=== PATIENT | male | born 1965 | race Caucasian/White ===

== ENCOUNTER 2019-11-08 11:07 | Outpatient (CLI) | payer OTHER, SELFPAY ==
[2019-11-08 12:58] LABS: Alanine Aminotransferase 70 U/L (16-63); Albumin Level 4.2 g/dL (3.4-5.0); Alkaline Phosphatase 87 U/L (46-116); Anion Gap 13.1 mmol/L (7-16); Aspartate Amino Transferase 37 U/L (15-37); Bilirubin,Total 0.5 mg/dL (0.00-1.00); Blood Urea Nitrogen 15 mg/dL (7-18); Calcium 9.2 mg/dL (8.5-10.1); Carbon Dioxide 28 mmol/L (21-32); Chloride 105 mmol/L (98-108); Estimated Glomerular Filt Rate > 60; Glucose 112 mg/dL (70-99); Osmolality Calculated 295 mOsm/kg (285-295); Potassium 4.1 mmol/L (3.5-5.1); Sodium 142 mmol/L (136-145); Total Protein 6.9 g/dL (6.4-8.2)
== END 2019-11-08 11:08 | disposition home or self-care (01) ==
LOC: CHSLAB 11:09
PROVIDERS: PCP Internal Medicine; Visit Provider Internal Medicine
DX: E78.2 Mixed hyperlipidemia (principal); R79.89 Other specified abnormal findings of blood chemistry
CPT/HCPCS: 36415; 80053

== ENCOUNTER 2019-12-09 10:03 | Outpatient (CLI) | payer OTHER, SELFPAY ==
[2019-12-09 10:55] LABS: Alanine Aminotransferase 63 U/L (16-63); Alkaline Phosphatase 78 U/L (46-116); Anion Gap 13.2 mmol/L (7-16); Aspartate Amino Transferase 31 U/L (15-37); Bilirubin,Total 0.5 mg/dL (0.00-1.00); Blood Urea Nitrogen 15 mg/dL (7-18); Calcium 9.1 mg/dL (8.5-10.1); Carbon Dioxide 28 mmol/L (21-32); Chloride 107 mmol/L (98-108); Estimated Glomerular Filt Rate > 60; Glucose 163 mg/dL (70-99); Osmolality Calculated 302 mOsm/kg (285-295); Potassium 4.2 mmol/L (3.5-5.1); Sodium 144 mmol/L (136-145); Total Protein 6.6 g/dL (6.4-8.2)
== END 2019-12-09 10:04 | disposition home or self-care (01) ==
PROVIDERS: PCP Internal Medicine; Visit Provider Internal Medicine
DX: R94.5 Abnormal results of liver function studies (principal)
CPT/HCPCS: 36415; 80053

== ENCOUNTER 2020-04-24 08:20 | Outpatient (CLI) | payer OTHER, SELFPAY ==
[2020-04-25 14:25] LABS: SARS-CoV-2 RNA PCR Negative
== END 2020-04-24 08:21 | disposition home or self-care (01) ==
LOC: CHSLAB 08:21
PROVIDERS: PCP Internal Medicine; Visit Provider Internal Medicine
DX: Z20.828 Contact with and (suspected) exposure to other viral communicable diseases (principal)
CPT/HCPCS: 87635; C9803; U0003

== ENCOUNTER 2020-06-04 07:38 | Outpatient (CLI) | payer OTHER, SELFPAY ==
--- NOTE | 2020-07-05 01:21 | WPDHOMESLEEP ---
Sleep Study - Home Unattended Date of Study: 06/04/20 Ordering Provider: Carolyn Briggs MD Interpreting Physician: Sapphire Light MD Home Sleep Study Type: Apnea Link Air Height: 1.83 m Weight: 115.666 kg Body Mass Index: 34.5 [place]: 13 Reason for Sleep Study EDY; loud snoring and nonrefreshing sleep Sleep History Bernardo Ca is a 55 year old male with hypertension, hyperlipidemia, low back pain, fatigue, and impaired fasting glucose. He has a history of loud snoring and he stops breathing at night. This has been going on several years. 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 His snoring is constantly loud enough that others complain about it. He constantly awakens at night with heartburn, belching and coughing. He constantly waking from sleep feeling short of breath. He rarely has trouble sleeping with a cold. He frequently wakes up gasping for breath at night. He frequently has breathing problems at night observed by others. He rarely sweats excessively at night. He occasionally notices his heart pounding or beating irregularly at night. He frequently falls asleep during the day, frequently involuntarily, rarely while driving. He does not fall asleep during physical effort. He does not have loss of muscle tone was strong emotion. He does not have daytime difficulties due to excessive sleepiness. He does not feel paralyzed on waking or falling asleep and does not have vivid dreamlike scenes upon awakening or falling asleep. He does not feel afraid to go to sleep. he does not have nightmares. He rarely remembers his dreams. Does not have racing thoughts. He does not have feelings of sadness, depression or anxiety. He does not have muscular tension. He does not notice parts of his body jerking. He rarely kicks at night. He does not have crawling and aching feelings in his legs at night. Rarely he has leg pain at night. He does not have morning jaw pain and he does not grind his teeth during sleep. He is not bothered by pain during the day and is not awakened by pain during the night. He occasionally wakes up feeling stiff in the morning with sore or achy muscles. He does not have spine pain in the morning. Normal bedtime is 9:00 p.m., falling asleep within 15 minutes, waking twice at night for a few minutes. When he awakens during the night he turns from side to side. He wakes at 4:45 a.m.. On the weekends he goes to bed at 9:00 p.m. but sleeps later, wakes up between 7 and 8:00 a.m.. He estimates between 7 and 9 hours of sleep at night. He does not take naps. A short nap is not refreshing. He feels better in the evening compared other times of day. Habits: He never smoked; drinks hot tea 2 servings per day, he drinks alcohol in social settings. [facility] Past Medical History Medical History (Updated 07/05/20 @ 01:39 by Sapphire Light MD) Gastroesophageal reflux disease History of perforation of tympanic membrane repaired surgically Hyperlipidemia Hypertension Impaired fasting glucose Surgical History Surgical History (Updated 07/05/20 @ 01:28 by Sapphire Light MD) History of discectomy 2019 History of spinal fusion 2018 Social History Social History (Updated 07/05/20 @ 01:31 by Sapphire Light MD) Smoking status: Never smoker Alcohol intake: current Alcohol use details: social alcohol use Living arrangements: with family Additional living arrangements comments: 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 This study was scored using [facility] guidelines. Sleep Architecture Not applicable for home sleep test.
[2020-07-05 01:42] VITALS: BMI 34.5
== END 2020-06-04 07:39 | disposition home or self-care (01) ==
PROVIDERS: PCP Internal Medicine; Visit Provider Internal Medicine
DX: G47.33 Obstructive sleep apnea (adult) (pediatric) (principal)
CPT/HCPCS: 95806

== ENCOUNTER 2020-08-14 00:57 | Outpatient (CLI) | payer OTHER, SELFPAY ==
[2020-08-14 19:42] LABS: SARS-CoV-2 RNA PCR Negative
== END 2020-08-14 00:58 | disposition home or self-care (01) ==
LOC: ANHCOVIDDT 00:57
PROVIDERS: PCP Internal Medicine; Visit Provider Internal Medicine Critical Care Medicine
DX: R68.89 Other general symptoms and signs (principal); Z20.822 Contact with and (suspected) exposure to COVID-19
CPT/HCPCS: C9803; U0003

== ENCOUNTER 2020-08-16 09:08 | Outpatient (CLI) | payer OTHER, SELFPAY ==
--- NOTE | 2020-09-23 17:36 | WPDSLEEPSTUD ---
Sleep Study Date of Study: 08/16/20 Ordering Provider: Dr.Rajnish Marcos Interpreting Physician: Sleep Study Type: CPAP Titration Height: 1.83 m Weight: 113.398 kg Body Mass Index: 33.9 Neck Circumference: 6.71 m [place]: 13 Reason for Sleep Study Prior home sltudy showed presence of severe obstructive sleep apnea along with severe desaturation. Sleep History Loud disruptive snoring, poor quality of sleep, witnessed apneas, and daytime sleepiness. [facility] Past Medical History Medical History (Updated 07/05/20 @ 01:39 by Sapphire Light MD) Gastroesophageal reflux disease History of perforation of tympanic membrane repaired surgically Hyperlipidemia Hypertension Impaired fasting glucose Surgical History Surgical History (Updated 07/05/20 @ 01:28 by Sapphire Light MD) History of discectomy 2019 History of spinal fusion 2018 Social History Social History (Updated 07/05/20 @ 01:31 by Sapphire Light MD) Smoking status: Never smoker Alcohol intake: current Additional living arrangements comments: with 3 children, works at a [employer] job Sleep Procedure The entire study was devoted to positive airway pressure titration. Patient used ResMed med F 20 full face mask of large size. Sleep Architecture Total recording time 467 minutes, total sleep time 375 minutes, sleep efficiency 80.3%. Sleep latency 25 minutes, REM latency 70 minutes. Awake after sleep onset 67 minutes, stage N1 8%, N2 62.5%, N3 4.8%, REM sleep 24.8%. Supine sleep 55%, supine REM sleep 12.3%. Respiratory Analysis AASM Criteria used. Patient had 21 apneas, obstructive apneas 10, central apneas 10, mixed apnea 1. Apnea index 3.4. Patient had 72 hypopneas with index 11.5. AHI 14.9. Supine index 18, nonsupine index 11. non-REM index 19.1, REM index 1.9. Arousals Total arousals 93 with index 11.9. Spontaneous arousals 61, hypopnea arousals 22, apnea arousals 5, snores arousal 0.3. Periodic Limb Movements Thirty-seven isolated leg movements with index 5.9. Three leg movements associated with arousal with arousal index 0.4 which is not significant. No PLM. Oximetry Data Average oxygen saturation during titration 95%, minimum oxygen saturation 83%. SaO2<90%-18Min,SaO2<88%-8Min. Snoring Profile Snoring was reported as moderate. Cardiac Profile Normal sinus rhythm, average heart rate 66 beats per minute, range 37-143 beats per minute. Few PVCs were noted. EEG Profile Unremarkable EEG. Assessment and Plan Additional Plan Diagnosis #1-EDY G47.33 Positive airway pressure titration study - patient was started on a CPAP of 5 cm. However within a short period of time, patient became very uncomfortable unable to exhale. At that time patient was switched to BiPAP mode which seemed to work well. The BiPAP therapy was begun at 8/4 cm and was gradually titrated to a maximum level of 28/24 cm. Patient continued to show presence of desaturation even at pressures of 22/18 cm. At BiPAP 28/24 cm patient had 1 hour and 22 minutes of trial with 97% sleep efficiency. Patient was supine. 33 minutes of REM sleep and 47 minutes of non-REM sleep occurred. Obstructive apneas and hypopneas were eliminated. Two central apneas were noted, 1 of them occurred after a spontaneous arousal. There air central apneas should not be of clinical concern. Oxygen saturation averaged at 96% and lowest saturation recorded was 91% at this pressure. In terms of management, consider use of BiPAP at 28/24 cm. The patient appeared to tolerate such high pressure reasonably well.If tolerance becomes an issue,lower pressure of 24/20cm.could be acceptable.Once patient gets accustomed to BiPAP, the pressure could be raised to ideal level.Other measures such as weight reduction,correction of upper airway obstruction if present and proper sleep hygiene will help in management of his sleep disorder.
[2020-09-23 18:04] VITALS: BMI 33.9
== END 2020-08-16 09:09 | disposition home or self-care (01) ==
LOC: ANHCSM 09:11
PROVIDERS: PCP Internal Medicine; Visit Provider Internal Medicine
DX: G47.33 Obstructive sleep apnea (adult) (pediatric) (principal)
CPT/HCPCS: 95811

== ENCOUNTER 2020-09-19 07:09 | Outpatient (CLI) | payer OTHER, SELFPAY ==
[2020-09-19 07:30] LABS: Add Urine Microscopic? NO; Appearance Urine Clear (Clear); Bilirubin Urine Negative (Negative); Blood Urine Negative (Negative); Color Urine Yellow (Yellow); Glucose Urine UA Negative (Negative); Ketones Urine Negative (Negative); Leukocyte Esterase Ur Negative (Negative); Nitrate Urine Negative (Negative); Protein Urine Negative (Negative); Urobilinogen Urine 0.2 mg/dL (0.2-1.0); pH Urine 6.5 (5.0-8.0)
[2020-09-19 07:47] LABS: Hemoglobin A1C 6.3 % (<5.7)
[2020-09-19 08:22] LABS: Alanine Aminotransferase 70 U/L (16-63); Albumin Level 4.3 g/dL (3.4-5.0); Alkaline Phosphatase 85 U/L (46-116); Anion Gap 9 mmol/L (8-16); Aspartate Amino Transferase 37 U/L (15-37); Bilirubin,Total 0.5 mg/dL (0.00-1.00); Blood Urea Nitrogen 13 mg/dL (7-18); Calcium 9.1 mg/dL (8.5-10.1); Carbon Dioxide 29 mmol/L (21-32); Chloride 103 mmol/L (98-108); Cholesterol 162 mg/dL (0-200); Creatine Kinase 152 U/L (39-308); Estimated Glomerular Filt Rate > 60; Glucose 122 mg/dL (70-99); HDL Direct 34 mg/dL (40-60); LDL Cholesterol Calculated 84 mg/dL (<130); Osmolality Calculated 293 mOsm/kg (285-295); Potassium 4.4 mmol/L (3.5-5.1); Sodium 141 mmol/L (136-145); Triglycerides 221 mg/dL (0-150)
== END 2020-09-19 07:10 | disposition home or self-care (01) ==
LOC: CHSLAB 07:11
PROVIDERS: PCP Internal Medicine; Visit Provider Internal Medicine
DX: R73.01 Impaired fasting glucose (principal); I10 Essential (primary) hypertension; E78.2 Mixed hyperlipidemia
CPT/HCPCS: 36415; 80053; 80061; 81003; 82550; 83036

== ENCOUNTER 2021-03-15 07:03 | Outpatient (CLI) | payer OTHER, SELFPAY ==
[2021-03-15 07:18] LABS: Add Urine Microscopic? NO; Appearance Urine Clear (Clear); Bilirubin Urine Negative (Negative); Blood Urine Negative (Negative); Color Urine Light Yellow (Yellow); Glucose Urine UA Negative (Negative); Ketones Urine Negative (Negative); Leukocyte Esterase Ur Negative (Negative); Nitrate Urine Negative (Negative); Protein Urine Negative (Negative); Specific Grav Ur >= 1.030 (1.010-1.020); Urobilinogen Urine 0.2 mg/dL (0.2-1.0); pH Urine 5.5 (5.0-8.0)
[2021-03-15 07:35] LABS: Hemoglobin A1C 6.2 % (<5.7)
[2021-03-15 07:36] LABS: Creatinine Urine 202.33 mg/dL (40-278); MALB Creatinine Ratio 6.4 mg/g (0-30); Microalbumin Urine Random < 13.0 mg/L
[2021-03-15 08:20] LABS: Alanine Aminotransferase 100 U/L (16-63); Albumin Level 4.1 g/dL (3.4-5.0); Alkaline Phosphatase 81 U/L (46-116); Anion Gap 12 mmol/L (8-16); Aspartate Amino Transferase 54 U/L (15-37); Bilirubin,Total 0.5 mg/dL (0.00-1.00); Blood Urea Nitrogen 12 mg/dL (7-18); Calcium 9.1 mg/dL (8.5-10.1); Carbon Dioxide 27 mmol/L (21-32); Chloride 106 mmol/L (98-108); Cholesterol 144 mg/dL (0-200); Creatine Kinase 202 U/L (39-308); Estimated Glomerular Filt Rate > 60; Glucose 119 mg/dL (70-99); HDL Direct 37 mg/dL (40-60); LDL Cholesterol Calculated 79 mg/dL (<130); Osmolality Calculated 300 mOsm/kg (285-295); Potassium 4.5 mmol/L (3.5-5.1); Prostate Specific Antigen 0.7 ng/mL (< OR = 4.0); Sodium 145 mmol/L (136-145); Triglycerides 142 mg/dL (0-150)
== END 2021-03-15 07:04 | disposition home or self-care (01) ==
LOC: CHSLAB 07:05
PROVIDERS: PCP Internal Medicine; Visit Provider Internal Medicine
DX: R73.01 Impaired fasting glucose (principal); E78.2 Mixed hyperlipidemia; I10 Essential (primary) hypertension; Z12.5 Encounter for screening for malignant neoplasm of prostate
CPT/HCPCS: 36415; 80053; 80061; 81003; 82043; 82550; 83036; 84153; G0103

== ENCOUNTER 2021-07-16 09:47 | Outpatient (CLI) | payer OTHER, SELFPAY ==
[2021-07-16 10:09] LABS: Hemoglobin A1C 6.1 % (<5.7)
[2021-07-16 10:49] LABS: Alanine Aminotransferase 79 U/L (16-63); Albumin Level 4.1 g/dL (3.4-5.0); Alkaline Phosphatase 95 U/L (46-116); Anion Gap 11 mmol/L (8-16); Aspartate Amino Transferase 43 U/L (15-37); Bilirubin,Total 0.5 mg/dL (0.00-1.00); Blood Urea Nitrogen 17 mg/dL (7-18); Calcium 9.4 mg/dL (8.5-10.1); Carbon Dioxide 27 mmol/L (21-32); Chloride 105 mmol/L (98-108); Estimated Glomerular Filt Rate > 60; Glucose 104 mg/dL (70-99); Osmolality Calculated 297 mOsm/kg (285-295); Potassium 4.4 mmol/L (3.5-5.1); Sodium 143 mmol/L (136-145); Total Protein 7.3 g/dL (6.4-8.2)
== END 2021-07-16 09:48 | disposition home or self-care (01) ==
LOC: CHSLAB 09:48
PROVIDERS: PCP Internal Medicine; Visit Provider Internal Medicine
DX: R73.01 Impaired fasting glucose (principal)
CPT/HCPCS: 36415; 80053; 83036

== ENCOUNTER 2021-07-29 07:36 | Outpatient (CLI) | payer OTHER, SELFPAY ==
--- NOTE | ~2021-07-29 | US_ITS ---
US right upper quadrant DATE: 07/29/2021 08:41 INDICATION: Right upper quadrant abdominal pain, elevated liver enzymes TECHNIQUE: Real-time imaging of liver, pancreas, gallbladder areas COMPARISON: 06/09/2013 radionuclide hepatobiliary scan 09/26/2011 gallbladder ultrasound FINDINGS: There is hepatic steatosis. Normal hepatopedal portal venous flow direction. No hepatic spa ce-occupying mass lesion is detected. No pancreatic mass lesion is detected. No bile duct or pancreatic duct dilatation. IMPRESSION: No significant abnormality Reviewed, dictated and finalized at Location [facility]. Reviewed, dictated and finalized at location B. [employer] IMPRESSION: No significant abnormality
== END 2021-07-29 07:37 | disposition home or self-care (01) ==
LOC: CHSIMG 07:37
PROVIDERS: PCP Internal Medicine; Visit Provider Internal Medicine
DX: R94.5 Abnormal results of liver function studies (principal); R10.11 Right upper quadrant pain
CPT/HCPCS: 76705

== ENCOUNTER 2022-11-04 15:25 | Outpatient (CLI) | payer OTHER, SELFPAY ==
--- NOTE | ~2022-11-04 | XR_ITS ---
XR hip RT min 2V 11/04/2022 15:43 Indication: Right hip pain Procedure: 2 views right hip Comparison: 10/07/2017 Findings: There is severe osteoarthritis of the right hip. No fracture or dislocation. No soft tissue abnormality. No foreign bodies. There are surgical changes consistent with fusion at L5-S1. Impression: 1: Severe osteoarthritis of the right hip. Reviewed, dictated and finalized at location A. Impression: 1: Severe osteoarthritis of the right hip.
== END 2022-11-04 15:26 | disposition home or self-care (01) ==
LOC: CHSIMG 15:27
PROVIDERS: PCP Internal Medicine; Visit Provider Internal Medicine
DX: M25.551 Pain in right hip (principal); M16.11 Unilateral primary osteoarthritis, right hip
CPT/HCPCS: 73502

== ENCOUNTER 2022-11-13 09:07 | Outpatient (CLI) | payer OTHER, SELFPAY ==
--- NOTE | ~2022-11-13 | MR_ITS ---
EXAMINATION: MR hip RT wo con DATE: 11/13/2022 10:29 INDICATION: Chronic right hip pain. TECHNIQUE: Magnetic resonance imaging (MRI) of the right hip was performed without intravenous contra st. COMPARISON: Right hip radiographs 11/04/2022 FINDINGS: Bones/cartilage: There are changes of anterior and posterior fusion procedures at L5-S1. There is a right supra-acetab ular insufficiency fracture without displacement. There is severe right hip osteoarthritis including full-thickness cartilage loss superiorly with acetabular subchondral cysts and joint osteophytes. The re is mild left hip osteoarthritis. Labrum: There is maceration of the right acetabular labrum. Fluid: There is a right hip joint effusion. Soft tissues: The gluteus minimus and gluteus medius tendons are normal. The hamstring origins are normal. The ilio psoas tendons are normal. The prostate is mildly enlarged. IMPRESSION: 1. Insufficiency fracture of right supra-acetabular ilium. 2. Severe right hip osteoarthritis and mild left hip osteoarthritis. 3. Right hip joint effusion. Reviewed, dictated and finalized at location A.
== END 2022-11-13 09:08 | disposition home or self-care (01) ==
LOC: CHSIMG 09:08
PROVIDERS: PCP Internal Medicine; Visit Provider Internal Medicine
DX: M25.551 Pain in right hip (principal); M84.459A Pathological fracture, hip, unspecified, initial encounter for fracture; M16.0 Bilateral primary osteoarthritis of hip; M25.451 Effusion, right hip
CPT/HCPCS: 73721

== ENCOUNTER 2024-04-18 07:10 | Outpatient (CLI) | payer OTHER, SELFPAY ==
--- NOTE | ~2024-04-18 | US_ITS ---
Limited Abdominal Sonogram: Real-time sonographic imaging of the right upper quadrant was performed. Clinical History: Right upper quadrant pain Findings: The liver appears echogenic, with no evidence of mass lesion or bile duct dilatation. Main portal vein demonstrates normal direction of flow. The gallbladder is well distended, and appears no rmal with no evidence of gallstone or wall thickening. The common bile duct measures 2 mm. The visua lized pancreas, aorta, and IVC are unremarkable. Impression: Diffuse fatty infiltration of the liver. Reviewed, dictated and finalized at location M. Impression: Diffuse fatty infiltration of the liver.
== END 2024-04-18 07:11 | disposition home or self-care (01) ==
LOC: CHSIMG 07:12
PROVIDERS: PCP Internal Medicine; Visit Provider Internal Medicine
DX: R10.11 Right upper quadrant pain (principal); K76.0 Fatty (change of) liver, not elsewhere classified
CPT/HCPCS: 76705

== ENCOUNTER 2024-05-02 10:04 | Outpatient (CLI) | payer OTHER, SELFPAY ==
--- NOTE | ~2024-05-02 | NM_ITS ---
EXAMINATION: NM hepatobiliary w pharm DATE: 05/02/2024 13:11 INDICATION: Right upper quadrant abdominal pain. COMPARISON: Ultrasound 04/18/2024 TECHNIQUE: 6.3 mCi Tc-99m mebrofenin (Choletec) was administered intravenously. Scintigraphic images of the abdomen were obtained for one hour. Then, 2.3 mcg sincalide (Kinevac) IV was administered, an d imaging was continued for 30 minutes. FINDINGS: There is normal clearance of radiotracer from the blood pool. There is homogeneous tracer u ptake by the liver. Activity progresses to the bowel and gallbladder. Gallbladder ejection fraction (GBEF) was 71%. Note that most patients with gallbladder dysfunction have GBEF < 35%, which overlaps with the broad normal range of 10-90%. IMPRESSION: 1. Normal hepatobiliary scintigraphy. Reviewed, dictated and finalized at location A.
== END 2024-05-02 10:05 | disposition home or self-care (01) ==
LOC: CHSIMG 10:05
PROVIDERS: PCP Internal Medicine; Visit Provider Internal Medicine
DX: R10.11 Right upper quadrant pain (principal)
CPT/HCPCS: 78227; A9537; J2805

== ENCOUNTER 2024-06-09 01:42 | Day surgery (SDC) | payer OTHER, SELFPAY ==
[2024-05-27 14:34] VITALS: BMI 34.0
[2024-06-09 12:03] VITALS: BP 145/78; PULSE 56; RESP 18; O2SAT 97
[2024-06-09] MEDS: LACTATED RINGERS 1,000 ML 150 ML IV CONT (12:27)
[2024-06-09 12:28] LABS: Glucose Point of Care 95 mg/dl (65-105)
--- NOTE | 2024-06-09 12:39 | P.PNAN_ITS ---
Anes - Initial Pre Proc Eval Procedure: Operation Date: 06/09/24 13:00 Proposed Procedures p Esophagogastroduodenoscopy&Screen Colon - Onur Campbell MD Date/Time: 06/09/24 12:39 Surgeon: Onur Campbell MD Pre Op Diagnosis: rt upper quad pain, screening colonoscopy Patient Data Age: 59 Gender: M Height: 1.83 m Weight: 116.2 kg Last Vital Signs Pulse 56 L 06/09/24 12:03 Resp 18 06/09/24 12:03 BP 145/78 H 06/09/24 12:03 Pulse Ox 97 06/09/24 12:03 O2 Del Method Room Air 06/09/24 12:03 Allergies Allergy/AdvReac Type Severity Reaction Status Date / Time No Known Allergies Allergy Unknown Verified 06/09/24 12:02 Home Medications Medication Instructions Recorded Confirmed Type aspirin 81 mg tablet 81 mg PO DAILY 05/27/24 06/09/24 History glimepiride 2 mg tablet 2 mg PO QAM 05/27/24 06/09/24 History glimepiride 4 mg tablet 6 mg PO HS 05/27/24 06/09/24 History losartan 100 1 tablet PO DAILY 05/27/24 06/09/24 History mg-hydrochlorothiazide 12.5 mg tablet metoprolol succinate 50 mg 50 mg PO DAILY 05/27/24 06/09/24 History tablet,extended release 24 hr simvastatin 40 mg tablet 1 mg PO DAILY 05/27/24 06/09/24 History Laboratory Tests 06/09/24 12:23 POC Capillary Glucose 95 mg/dl (65-105) Patient hx anesthesia problems: none Family hx anesthesia problems: none Results Review: All pre-operative results and documents have been reviewed as part of the pre- operative evaluation. [facility] Past Medical History Medical History (Updated 06/09/24 @ 12:39 by Robb Jaimes CRNA) Gastroesophageal reflux disease History of perforation of tympanic membrane repaired surgically Hyperlipidemia Hypertension Impaired fasting glucose Obstructive sleep apnea (~05/2020) Surgical History Surgical History History of discectomy 2019 History of spinal fusion 2017 Social History Social History Smoking status: Never smoker Alcohol intake: current Drinks per week: 2 Alcohol use details: 2 beers a week Substance use type: does not use Living arrangements: with family Additional living arrangements comments: with Spiritual care concerns: No Anes - Eval Final PreProcedure Day of Procedure 06/09/24 12:39 Patient weight: obese Heart: regular rate and rhythm Lungs: clear to auscultation Airway: Mallampati scale class III Neurological: alert and oriented Last oral intake: >/= 8 hours ASA classification: III Emergent: no Anesthetic plan: proceed Anesthesia type and monitoring: general GIVS Results Review: All pre-operative results and documents have been reviewed as part of the pre- operative evaluation. Informed Consent: The patient's anesthetic plan and its attendant risks and benefits were discussed with the patient/family/POA. Questions were solicited and answers provided to the satisfaction of the patient/family/POA.
--- NOTE | 2024-06-09 12:46 | PM.HPGS ---
History of Present Illness History of Present Illness Consent: Risks, benefits, and alternatives have been discussed and questions answered. Patient agrees to proceed with procedure. Chief complaint: rt upper quad pain, screening colonoscopy Narrative: Bernardo Ca is a 59 year old male with intermittent pain in ruq. Last colonoscopy 10 years ago Review of Systems Review of Systems: All systems reviewed & are unremarkable except as noted in HPI and below PMFSH Past Medical History Medical History (Updated 06/09/24 @ 12:47 by Onur Campbell MD) Colon cancer screening Gastroesophageal reflux disease History of perforation of tympanic membrane repaired surgically Hyperlipidemia Hypertension Impaired fasting glucose Obstructive sleep apnea (~05/2020) RUQ pain Surgical History Surgical History History of discectomy 2019 History of spinal fusion 2018 Social History Social History Smoking status: Never smoker Alcohol intake: current Drinks per week: 2 Alcohol use details: 2 beers a week Substance use type: does not use Living arrangements: with family Additional living arrangements comments: with Spiritual care concerns: No Meds Home Medications and Allergies Home Medications Medication Instructions Recorded Confirmed Type aspirin 81 mg tablet 81 mg PO DAILY 05/27/24 06/09/24 History glimepiride 2 mg tablet 2 mg PO QAM 05/27/24 06/09/24 History glimepiride 4 mg tablet 6 mg PO HS 05/27/24 06/09/24 History losartan 100 1 tablet PO DAILY 05/27/24 06/09/24 History mg-hydrochlorothiazide 12.5 mg tablet metoprolol succinate 50 mg 50 mg PO DAILY 05/27/24 06/09/24 History tablet,extended release 24 hr simvastatin 40 mg tablet 1 mg PO DAILY 05/27/24 06/09/24 History Allergies Allergy/AdvReac Type Severity Reaction Status Date / Time No Known Allergies Allergy Unknown Verified 06/09/24 12:02 Vital Signs Vital Signs - 24 hr 06/09/24 12:03 Pulse Rate 56 L Respiratory Rate 18 Blood Pressure 145/78 H Pulse Oximetry 97 Oxygen Delivery Room Air Exam Const: General: comfortable and no acute distress HENMT: Face/Nose/Sinus: Normal nares present Eyes: General: appearance normal, both eyes and all related structures Neck: Neck: no JVD Resp: Auscultation: clear to auscultation bilaterally Cardio: Rate: regular rate Rhythm: regular rhythm GI: Inspection: non-distended GI Palp: Yes Soft to palpation Skin: General skin exam: normal color Neuro: General: gait normal Speech: normal speech Extrem: General: normal to inspection Psych: Mental Status: mental status grossly normal Assessment and Plan Assessment and plan (1) RUQ pain: Code(s): R10.11 - Right upper quadrant pain Status: Acute Assessment and Plan: egd (2) Colon cancer screening: Code(s): Z12.11 - Encounter for screening for malignant neoplasm of colon Status: Acute Assessment and Plan: colonoscopy
[2024-06-09 13:07] VITALS: BP 109/53; PULSE 60; RESP 19; O2SAT 97
[2024-06-09 13:17] VITALS: BP 119/67; PULSE 56; RESP 19; O2SAT 96
[2024-06-09 13:27] VITALS: BP 110/67; PULSE 58; RESP 19; O2SAT 96
== END 2024-06-09 13:46 | disposition home or self-care (01) ==
PROVIDERS: PCP Internal Medicine; Visit Provider Internal Medicine Gastroenterology
PROC: 0DJ08ZZ Inspection of Upper Intestinal Tract, Via Natural or Artificial Opening Endoscopic (ICD-10-PCS; CPT 43235; principal; 2024-06-09 13:00)
DX: Z12.11 Encounter for screening for malignant neoplasm of colon (principal); D12.4 Benign neoplasm of descending colon; D12.8 Benign neoplasm of rectum; K64.8 Other hemorrhoids; K29.50 Unspecified chronic gastritis without bleeding; K21.9 Gastro-esophageal reflux disease without esophagitis; E78.5 Hyperlipidemia, unspecified; I10 Essential (primary) hypertension; G47.33 Obstructive sleep apnea (adult) (pediatric); E66.9 Obesity, unspecified; Z68.34 Body mass index [BMI] 34.0-34.9, adult; Z79.82 Long term (current) use of aspirin; Z79.84 Long term (current) use of oral hypoglycemic drugs; Z98.890 Other specified postprocedural states; Z98.1 Arthrodesis status
CPT/HCPCS: 43239; 45385; 82948; 88305; J7120

== ENCOUNTER 2024-10-03 07:42 | Outpatient (CLI) | payer OTHER, SELFPAY ==
--- NOTE | ~2024-10-03 | NM_ITS ---
EXAMINATION: NM weston stress w perfusion DATE: 10/03/2024 10:51 INDICATION: Encounter for preprocedural cardiovascular exam TECHNIQUE: Rest images were obtained following intravenous administration of 10.9 mCi Tc99m tetrofosm in (Myoview). The patient was infused intravenously with Lexiscan (Regadenoson). Then, 34.7 mCi Tc99m tetrofosmin (Myoview) was administered intravenously, and stress images were obtained. Data was aime nstructed into short axis and horizontal and vertical long axis SPECT images. Gated SPECT images were also obtained. COMPARISON: None. FINDINGS: There is a small focus of mild decreased activity at the apical lateral segment of the non gated rest and stress images which is equivocal for infarct. There is normal left ventricular chambe r size, wall motion and ejection fraction. Left ventricular ejection fraction measures 53%. IMPRESSION: 1. Equivocal small mild infarct at the apical lateral segment. 2. Left ventricular ejection fraction measuring 53%. Reviewed, dictated and finalized at location B. ER AND TACKER
--- NOTE | 2024-10-03 07:46 | ECHO_ITS ---
Patient Info Name: Bernardo Ca Age: 59 years : 1965 Gender: Male Ht: 72 in Wt: 270 lbs BSA: 2.54 m2 HR: 46 bpm BP: 174 / 103 mmHg Heart Rhythm: Sinus Rhythm Technical Quality: Fair Exam Date: 10/03/2024 7:58 AM Exam Location: Echo Lab Patient Status: Outpatient Admit Date: 10/03/2024 Staff Ordering Physician: Benoit Freeman DO Dredge Operator: Rose Marie Sal RDCS Attending Provider: Benoit Freeamn DO Referring Physician: Pete MINOR; Exam Type: CA echo doppler color flow Study Info Indications - Cardiac Arrhythmias Complete two-dimensional, color flow and Doppler transthoracic echocardiogram is performed. Summary 1. Complete two-dimensional, color flow and Doppler transthoracic echocardiogram is performed. 2. Left ventricular chamber dimension is normal. 3. Left ventricular systolic function is normal, estimated at 65-70%. 4. The left ventricular diastolic function is grade II diastolic dysfunction. 5. E/e' 9 is minimally elevated. 6. Left atrial chamber dimension is mildly enlarged. 7. There is mild aortic valve sclerosis. 8. The mitral valve has mildly calcified leaflets. 9. No pulmonary hypertension, estimated pulmonary arterial systolic pressure is 19 mmHg. Left Ventricle E/e' 9 is minimally elevated. Left ventricular chamber dimension is normal. Left ventricular systolic function is normal, estimated at 65-70%. The left ventricular diastolic function is grade II diastolic dysfunction. Right Ventricle Right ventricular systolic function is normal and with normal TAPSE 2.8 cm. Right ventricular chamber dimension is normal. Left Atria Left atrial chamber dimension is mildly enlarged. Right Atria Right atrial chamber dimension is normal. Aortic Valve The aortic valve is trileaflet. There is mild aortic valve sclerosis. There is no aortic valve stenosis. There is no aortic valve regurgitation. Pulmonic Valve There is no pulmonic regurgitation. Mitral Valve The mitral valve has mildly calcified leaflets. There is no mitral valve stenosis. There is no mitral valve regurgitation. Tricuspid Valve There is no tricuspid valve regurgitation. No pulmonary hypertension, estimated pulmonary arterial systolic pressure is 19 mmHg. Pericardium/Pleural There is no pericardial effusion. Inferior Vena Cava Normal inferior vena cava with >50% collapse upon inspiration consistent with normal right atrial pressure, 5 mmHg. Aorta The aortic root size at the sinus of Valsalva is normal. Left Ventricular Outflow Tract Name Value Normal LVOT 2D LVOT Diameter 2.0 cm LVOT Doppler LVOT Peak Gradient 3 mmHg LVOT Mean Gradient 1 mmHg LVOT VTI 19 cm LVOT VTI/AV VTI Ratio 0.7 LVOT Stroke Volume 56 ml LVOT CO 3.2 l/min LVOT CI 1.3 l/min/m2 Pulmonic Valve Name Value Normal RVOT Doppler RVOT Peak Gradient 4 mmHg PV Doppler PV Peak Gradient 6 mmHg Mitral Valve Name Value Normal MV Doppler MV Decel [place] 663 cm/s2 MV PHT 44 ms MV Area (PHT) 5.0 cm2 4.0-5.0 MV Diastolic Function MV E Peak Velocity 100 cm/s MV A Peak Velocity 64 cm/s MV E/A 1.6 MV Decel Time 151 ms MV Annular TDI MV E/e' (Septal) 12.4 <=8.0 MV E/e' (Lateral) 7.7 <=8.0 MV E/e' (Average) 10.0 Tricuspid Valve Name Value Normal TV Regurgitation Doppler TR Peak Velocity 186 cm/s TR Peak Gradient 14 mmHg Estimated PAP/RSVP RA Pressure 5 mmHg <=5 PA Systolic Pressure 19 mmHg <36 RV Systolic Pressure 19 mmHg <36 Aorta Name Value Normal Ascending Aorta Ao Root Diameter (MM) 3.5 cm Ao Root Diam Index (MM) 1.4 cm/m2 Aortic Valve Name Value Normal AV Doppler AV Peak Velocity 126 cm/s AV Peak Gradient 6 mmHg AV Mean Gradient 3 mmHg AV VTI 28 cm AV Area (Cont Eq VTI) 2.0 cm2 >=3.0 AV Area (Cont Eq Duy) 2.0 cm2 AV Regurgitation 2D LVOT Area 3.0 cm2 Ventricles Name Value Normal LV Dimensions 2D/MM IVS Diastolic Thickness (2D) 1.1 cm 0.6-1.0 LVID Diastole (2D) 5.4 cm 4.2-5.8 LVIW Diastolic Thickness (2D) 1.0 cm 0.6-1.0 LVID Systole (2D) 3.4 cm 2.5-4.0 LVOT Diameter 2.0 cm LV Mass (2D Cubed) 214.22 g 88.00-224.00 LV Mass Index (2D Cubed) 84 g/m2 49-115 Relative Wall Thickness (2D) 0.36 LV Fractional Shortening/Ejection Fraction 2D/MM LV Fractional Shortening (2D) 36 % 25-43 LV EF (2D Teicholz) 65 % 52-72 LV Diastolic Volume (4C MOD) 127 ml LV EF (4C MOD) 74 % LV Diastolic Volume (2C MOD) 88 ml LV EF (2C MOD) 70 % LV Diastolic Volume (BP MOD) 107 ml 62-150 LV Diastolic Volume Index (BP MOD) 42 ml/m2 34-74 LV Systolic Volume (BP MOD) 30 ml 21-61 LV Systolic Volume Index (BP MOD) 12 ml/m2 11-31 LV EF (BP MOD) 72 % 52-72 LV Diastolic Length (4C) 9.0 cm LV Systolic Length (4C) 7.3 cm LV Stroke Volume (4C MOD) 93 ml Atria Name Value Normal LA Dimensions LA Dimension (MM) 5.4 cm 3.0-4.1 LA Volume (4C A-L) 66 ml LA Volume (BP A-L) 74 ml RA Dimensions RA Area (4C) 20.7 cm2 <=18.0 Report Signatures
--- OUTSIDE RECORDS SUMMARY | 2024-10-03 07:48 | XMS_ITS | CONTINUITY OF CARE DOCUMENT ---
Author Name jeyson marthacelestino Address Unknown Organization [facility] Address [address] [place] [address] Phone [phone] Care Team Providers Care Land Surveyor Name Role Phone Gaurav MARIN, Christine Unavailable [phone] ADA SCOTT MD Unavailable PROBLEMS Condition Status Date Provider Notes Family History of Hypertension: completed - Lang Nolasco MD Family History of Hypertension: completed - Lang Nolasco MD Abnormal EKG active Christine Nolasco MD Hyperlipidemia active Christine Nolasco MD HTN active Christine Nolasco MD Mild nonobstructive CAD active Christine ariza MD Pre-operative cardiovascular examination completed - Christine Nolasco MD Palpitations active Christine Nolasco MD ENCOUNTERS Date Type Provider Location Encounter Diag nosis - In-person encounter Office Visit [facility] Family History of Hypertension:Family History of Hypertension:Mild nonobstructive CADPre-operative cardiovascular examination - In-person encounter Office Visit Christine Nolasco MD [facility] - In-person encounter Office Visit Christine Nolasco MD [facility] Mild nonobstructive CADPalpitations - In-person encounter Office Visit Christine Nolasco MD [facility] Abnormal EKGHyperlipidemiaHTN VITAL SIGNS Date Observation Value Provider Body Mass Index (Ratio) 33.50 kg/m2 Arun colón Ruby blood pressure, diastolic, left arm 90 mm [Hg] [facility] blood pressure, systolic, left arm 140 mm [Hg] [facility] blood pressure, diastolic, right arm 92 m m[Hg] [facility] blood pressure, systolic, right arm 150 m m[Hg] [facility] blood pressure, diastolic 78 mm[Hg] Lang Nolasco MD blood pressure, systolic 132 mm[Hg] Jean Carlos Nolasco MD oxygen saturation, oximetry 97 % [facility] respiratory rate E&M 16 /min [facility] pulse rate 75 /min [facility] weight E&M 247 [lb_av] [facility] height E&M 72 [in_i] [facility] Body Mass Index (Ratio) 33.22 kg/m2 Judson Nolasco MD blood pressure, diastolic, left arm 84 mm [Hg] Yola Gordonhley blood pressure, systolic, left arm 130 mm [Hg] Yola Gordonhley blood pressure, diastolic, right arm 80 m m[Hg] Yola Zuleima blood pressure, systolic, right arm 138 m m[Hg] Yola Zuleima blood pressure, cuff size large Te jose Zuleima blood pressure, diastolic 84 mm[Hg] Te jose Gordonhley blood pressure, systolic 130 mm[Hg] Ten олег Zuleima oxygen saturation, oximetry 97 % Yola Gordonhley respiratory rate E&M 18 /min Yola Zuleima pulse rate 69 /min Yola Zuleima weight E&M 245 [lb_av] Christine Nolasco MD Body Mass Index (Ratio) 34.09 kg/m2 Judson Nolasco MD blood pressure, diastolic, left arm 84 mm [Hg] Yola Zuleima blood pressure, systolic, left arm 146 mm [Hg] Yola Zuleima blood pressure, diastolic, right arm 88 m m[Hg] Yola Zuleima blood pressure, systolic, right arm 142 m m[Hg] Yola Zuleima blood pressure, cuff size large Te jose Zuleima blood pressure, diastolic 84 mm[Hg] Te jose Zuleima blood pressure, systolic 146 mm[Hg] Ten олег Zuleima oxygen saturation, oximetry 97 % Yola Zuleima respiratory rate E&M 18 /min Yola Zuleima pulse rate 98 /min Yola Zuleima weight E&M 251.4 [lb_av] [facility] Body Mass Index (Ratio) 34.04 kg/m2 Judson Nolasco MD blood pressure, diastolic, left arm 80 mm [Hg] Yola Zuleima blood pressure, systolic, left arm 150 mm [Hg] Yola Zuleima blood pressure, diastolic, right arm 78 m m[Hg] Yola Zuleima blood pressure, systolic, right arm 146 m m[Hg] Yola Zuleima blood pressure, cuff size large Te jose Zuleima blood pressure, diastolic 80 mm[Hg] Te jose Zuleima blood pressure, systolic 150 mm[Hg] Ten олег Zuleima blood pressure, resting Yes [facility] oxygen saturation, oximetry 97 % Yola Zuleima respiratory rate E&M 18 /min Yola Zuleima pulse rate 44 /min Yola Dewey weight E&M 251 [lb_av] Yola Dewey height E&M 72 [in_i] Yola Dewey ALLERGIES No Known Drug Allergies RESULTS Date Observation Value Provider Reference Range Interpretation Location 6 international normalized ratio (INR) 1.0 Saranya Dwyer Normal 6 prothrombin time (patient) 12.5 s Saranyacarlee Dwyer HISTORY OF MEDICATION USE Medication Status Instructions Dates Provider Indications Com ments METOPROLOL SUCCINATE ER 50 MG ORAL TABLET EXTENDED RELEASE 24 HOUR active one tab. daily Christine Nolasco MD LOSARTAN POTASSIUM-HCTZ 100-12.5 MG ORAL TABLET active One tab daily Christine Nolasco MD SIMVASTATIN 40 MG ORAL TABLET active ONE TAB. DAILY Christine Nolasco MD SOCIAL HISTORY Date Observation Value Provider social history reviewed E&M revi ewed - no changes required Christine Nolasco MD smoking status Never smoker Katia Elva smoking status Never smoker Christine lucio MD social history reviewed E&M revi ewed - no changes required Christine Nolasco MD smoking status Never smoker Christine lucio MD social history reviewed E&M revi ewed - no changes required Christine Nolasco MD social history reviewed E&M revi ewed - no changes required Christine Nolasco MD social history E&M S moking History: Murali herbert has never smoked. Christine Nolasco MD number of grandchildren Christine Dewey smoking status Never smoker Yola sterling FAMILY HISTORY Family Member Condition Father Family History of Hy pertension: Father Family History of Di abetes: Mother Family History of Hy pertension: INSURANCE PROVIDERS Payer name Policy type / Coverage type Raymond red green party ID [id number] Other [id number] ADVANCE DIRECTIVES Name Date DISCUSSED - NO DECISION MADE TREATMENT PLAN Date Name Performer Cardiology:Blood pre ssure is slightly elevated at 132/78. He continues on losartan and metoprolol. He will check his blood pressure regularly and call us if it is consistently elevated above 140/90. Staci Beltran Cardiology:Chest pain free. Effo rt tolerance stable. Christine Nolasco MD Cardiology:On simvastatin 40mg. Christine Nolasco MD Cardiology:No recurr ence. Continues on metoprolol 50mg once daily. Christine Nolasco MD Cardiology:Continue simvastatin Christine Nolasco MD Cardiology:BP control is satisfa ctory. Christine Nolasco MD Cardiology:No recurr ence of symptoms. Will continue metoprolol succinate 50mg one tab daily. Christine Nolasco MD Cardiology:Recent ca th showed mild non obstructive CAD. He will continue with bp control, weight loss and exercise. Will have his lipid panel done and if his LDL is above 100 will require statins. Christine Nolasco MD Cardiology:On simvastatin. Gino Nolasco MD Cardiology:The bp co ntrol is satisfactory. The losartan hctz dose was increased since his last visit. Christine Nolasco MD Cardiology:The EKG t corry shows sinus rhythm with no arrhythmias. His initial tele readings showed ventricular bigeminy. He is fairly asymptomatic. Will await the telecentry interrogation. Christine Nolasco MD Cardiology:On losart an-hctz 100-12.5 mg once dileep, previously on lostartan 50 mg. His BP today was 150/80, he is yet to start this new combination. Will continue to monitor his BP and adjust medications as needed. Christine Nolasco MD Cardiology:H as been on simvastatin 40 mg daily for the past three years. His very recent lipid panel shows a total cholesterol of 162, HDL of 35, and a calculated LDL of 53, and a direct LDL of 88. His triglycerides are 371 and his blood sugar 87. If he is adherent to his diet he will benefit from fish oil. Christine Nolasco MD Cardiology:Patient i s asymptomatic. His EKG shows ventricular bigeminy. The etiology of this is unclear, his potassium, magnesium, are normal at 4.3 and 2.1, respectively. His TSH was 1.37 and a Free T3 of 0.95. Will schedule a telesentry monitor, echocardiogram, and routine stress test. Christine Nolasco MD Date Name Cardiac Cath - Left - [facility] STR - Routine Mobile Cardiac Tele Complete Echo HISTORY OF PROCEDURES Procedure Date Procedure Name Provider Procedure Notes S tatus EKG Christine Nolasco MD complet ed SNOMED-CT: 251508512399834 Current Medications Documented Christine Nolasco MD completed SNOMED-CT: 02868291 Physical Exam, Performed: Pulse Exam of Foot Christine Nolasco MD completed EKG Christine Nolasco MD complet ed SNOMED-CT: [id number] Current Medications Documented Christine Nolasco MD completed Protime Christine Nolasco MD complet ed SNOMED-CT: 75451884 Physical Exam, Performed: Pulse Exam of Foot Christine Nolasco MD completed EKG Christine Nolasco MD complet ed SNOMED-CT: 751029331812364 Current Medications Documented Christine Nolasco MD completed Cardiolite, 2 units Celso Aranda MD completed SPECT Images Celso Aranda MD completed Stress EKG Celso Aranda MD completed Mobile Cardiac Telem etry - Tech Christine Nolasco MD completed Mobile Cardiac Telem etry - Prof Christine Nolasco MD completed Mobile Cardiac Telem etry - Prof Christine Nolasco MD completed EKG Christine Nolasco MD complet ed SNOMED-CT: 637286389637627 Current Medications Documented Christine Nolasco MD completed
--- NOTE | 2024-10-03 08:29 | EST_ITS ---
Patient Info Name: Bernardo Ca Age: 59 years : 1965 Gender: Male Ht: 72 in Wt: 270 lbs BSA: 2.54 m2 HR: 72 bpm BP: 138 / 70 mmHg Exam Date: 10/03/2024 9:21 AM Exam Location: Echo Lab Patient Status: Outpatient Admit Date: 10/03/2024 Staff Ordering Physician: Benoit Freeman DO Attending Provider: Benoit Freeman DO Exercise Technologist: Cole ANDRADE GROUNDSMAN Exercise Physician: Benoit Freeman DO Exam Type: CA stress weston w NM Study Info Indications Z01.810 - Encounter for preprocedural cardiovascular examination A regadenoson stress test was performed. Summary 1. 1. Negative lexiscan stress test for ischemic ST changes by ECG criteria. 2. 2. Stable hemodynamics throughout the test. 3. 3. Nuclear scan to follow and will be reported separately. Please correlate with it. 4. 4. Patient informed of the above results. Protocol: Lexiscan Stress ECG Details Stage: REST Duration (min): 0 min : 23 sec HR (bpm): 58 SBP (mmHg): --- DBP (mmHg): --- Stage: REST Duration (min): 5 min : 23 sec HR (bpm): 57 SBP (mmHg): 138 DBP (mmHg): 70 Stage: STAGE 1 Duration (min): 1 min : 0 sec HR (bpm): 88 SBP (mmHg): 144 DBP (mmHg): 94 Stage: RECOVERY Duration (min): 1 min : 0 sec HR (bpm): 90 SBP (mmHg): 144 DBP (mmHg): 94 Stage: RECOVERY Duration (min): 1 min : 10 sec HR (bpm): 95 SBP (mmHg): 144 DBP (mmHg): 94 Rest HR: 57 bpm Peak HR: 97 bpm Rest Sys BP: 138 mmHg Peak Sys BP: 144 mmHg Max Pred HR: 159 bpm % Max Pred HR: 61 % Target HR: 135 bpm Max RPP: 13,968 bpm*mmHg Termination Reason: Completed protocol Total Time: 1 min : 0 sec Rest Donaldson BP: 70 mmHg Peak Donaldson BP: 94 mmHg Total Dose: 0.4 mg Resting ECG Sinus bradycardia with frequent PVC's. Stress ECG No ST changes. Arrhythmias None. Report Signatures
== END 2024-10-03 07:43 | disposition home or self-care (01) ==
PROVIDERS: PCP Internal Medicine; Visit Provider Internal Medicine Cardiovascular Disease
DX: I49.8 Other specified cardiac arrhythmias (principal); Z01.810 Encounter for preprocedural cardiovascular examination
CPT/HCPCS: 78452; 93017; 93306; A9502; J2785

== ENCOUNTER 2024-10-04 00:56 | Day surgery (SDC) | payer OTHER, SELFPAY ==
[2024-09-12 09:06] VITALS: BP 158/86; PULSE 69; RESP 16; TEMP 36.4; O2SAT 98; BMI 37.0
--- NOTE | 2024-09-12 09:23 | PC.NURSE ---
Report to the Outpatient Waiting Room, entrance under the green pavilion located off [facility], at time ___6:00AM____ on date ___10/04/24____. Planned Procedure Time: ___7:30AM .? Time changes happen often and if your time is changed the preop area will call you the afternoon before. - You and your visitor will be asked to self-screen and do not enter if you have any COVID symptoms. Please call surgeon if you need to reschedule. - A mask is optional within the hospital at this time. Patients may have clear liquids (water, carbonated beverages, clear teas, apple juice) until 3 hours prior to surgery with a maximum of 20 ounces. - No food from midnight until time of surgery and no smoking. This includes no chewing gum, candy or mints. Take only the following medications with a SIP of water on the morning of surgery: METOPROLOL DO NOT STOP ANY OF YOUR OTHER PRESCRIPTION MEDICATIONS PRIOR TO SURGERY EXCEPT THE FOLLOWING Medications to discontinue per physician ____HOLD IBUPROFEN(ALL NSAIDS) 7 DAYS PRE-OP PER DR PATINO- LAST DOSE 09/26/24. INSTRUCTED BY DR PATINO TO CONTINUE ASPIRIN DAILY. Please no make-up, nail slovak, hairspray, perfume, deodorant, or body powder the day of surgery.? No jewelry (including any body piercings) or valuables the day of surgery, leave them at home.? Please take a shower or bath the night before, or the morning of, surgery with an antibacterial soap.? Wear comfortable, loose fitting clothing.? - Jewelry must be removed prior to entering the operating room.? Rings and piercings that are not removed may be cut off. - The hospital will not accept responsibility for valuables.? - Please leave all valuables, including medications, at home the day of surgery. If you are going home after surgery, a licensed security patrol driver must drive you home.? - NO public transportation without another adult if you receive anesthesia. - We recommend that an adult stay with you for 24 hours following discharge. - We also recommend that you do not drive, make important decision, drink alcoholic beverages, or take any drugs that were not prescribed by your health care provider for at least 24 hours after your discharge time. Hold all vitamins and supplements for 3 days per anesthesiologist. Follow any additional instructions given to you from your surgeon. HIBICLENS SHOWER PER DR PATINO. Telephone instructions given to PATIENT and asked if any additional questions and then verbalized understanding. Patient advised to call surgeon office or pre surgery nurse liaison [phone] if any additional questions.
--- NOTE | 2024-10-03 11:46 | P.HP_ITS ---
H&P: HPI History of Present Illness Date/Time: 10/03/24 11:46 Chief Complaint: Right hip DJD Narrative: 59-year-old male who presents today for a right anterior total hip arthroplasty. Patient has had known osteoarthritis in the right hip since November 2022. He has been treating this nonsurgically with [id number] anti-inflammatories. Last 6 months his symptoms have steadily worsened. At this point he is having rather severe pain in the medial groin anterior thigh on a daily basis. He is walking with a pronounced limp as well. 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 At this point patient feels he would rather proceed with total hip arthroplasty rather than continue nonsurgical treatment. Review of Systems Review of Systems: All systems reviewed & are unremarkable except as noted in HPI and below PMFSH Past Medical History Medical History Colon cancer screening RUQ pain Obstructive sleep apnea (~05/2020) History of perforation of tympanic membrane repaired surgically Gastroesophageal reflux disease Impaired fasting glucose Hyperlipidemia Hypertension Surgical History Surgical History History of discectomy 2019 History of spinal fusion 2018 Social History Social History Smoking status: Never smoker Alcohol intake: current Drinks per week: 6 Alcohol use details: 2 beers a week Substance use type: does not use Do You Feel Safe in your Home?: Yes Lack of Transportation: No Lack of Food: Never True Current Housing: I Have Housing Concerned About Future Housing: No Difficulty Paying Gas/Electric Bills: No Difficulty Paying for Meds: No Currently Unemployed: No Education: High School Diploma/GED Difficulty w/ Childcare or Family Care: No Living arrangements: with family Additional living arrangements comments: Spiritual care concerns: No Meds Home Medications and Allergies Home Medications ?Medication ?Instructions ?Recorded ?Confirmed ?Type aspirin 81 mg tablet 81 mg PO DAILY 05/27/24 09/12/24 History glimepiride 2 mg tablet 2 mg PO BID 05/27/24 09/12/24 History glimepiride 4 mg tablet 4 mg PO HS 05/27/24 09/12/24 History losartan 100 1 tablet PO DAILY 05/27/24 09/12/24 History mg-hydrochlorothiazide 12.5 mg tablet metoprolol succinate 50 mg 50 mg PO DAILY 05/27/24 09/12/24 History tablet,extended release 24 hr simvastatin 40 mg tablet 1 mg PO DAILY 05/27/24 09/12/24 History acetaminophen 500 mg tablet 1,000 mg PO Q6H PRN pain 09/12/24 09/12/24 History (Tylenol Extra Strength) ibuprofen 200 mg tablet (Advil) 400 mg PO Q6H PRN pain 09/12/24 09/12/24 History mupirocin 2 % topical ointment 1 applic topical BID #22 grams 09/19/24 Rx Allergies Allergy/AdvReac Type Severity Reaction Status Date / Time No Known Allergies Allergy Unknown Verified 09/12/24 11:10 Exam Narrative: [age] year he is 6 ft tall and 271 lb BMI is 36.7. He walks with a marked limp. His right hip flexes to 90 which causes him groin pain. Internal rotation is to 0 external rotation to 25 he has no pain with internal or external rotation. Negative Stinchfield maneuver. He has normal abduction strength in lateral position no tenderness over the greater trochanter. Skin around the hip and groin crease are normal. 2+ posterior tibial artery palpable. Absent dorsalis pedis pulse. No numbness to light touch in lower extremities. There is no edema in lower extremities. Resp: Auscultation: clear to auscultation bilaterally Cardio: Rate: regular rate Rhythm: regular rhythm Assessment and Plan Assessment and plan (1) Osteoarthritis of right hip: Qualifiers: Osteoarthritis type: primary Qualified Code(s): M16.11 - Unilateral primary osteoarthritis, right hip Code(s): M16.11 - Unilateral primary osteoarthritis, right hip Status: Acute Assessment and Plan: 59-year-old male who has advanced osteoarthritis the right hip with significant symptoms on a daily basis. At this point patient feels he is ready to proceed with total hip arthroplasty. Surgical procedures well as the risks and complications were discussed in detail all questions were answered and we will proceed. Patient will see his primary care doctor for pre-surgical clearance. He has seen cardiology. He is had an echo as well as stress test done. Eject ion fraction was at 60%. No ischemic changes noted on the stress test left ventricular size and function were normal on the echo. He was cleared from cardiology standpoint. Patient will avoid any Advil ibuprofen products 1 prior to surgery. He will remain on his baby aspirin through the time surgery. Patient's nasal swab did grow oxacillin sensitive Staph aureus and has been D colonizing. Hemoglobin is 15.7 and platelets are 205. Chem panel was all within normal limits creatinine 0.70. Hemoglobin A1c was 6.3
[2024-10-04] VITALS (18 sets, daily range): BP systolic 115–145; BP diastolic 54–76; PULSE 51–78; RESP 13–18; TEMP 36.2–37; O2SAT 93–99
--- NOTE | ~2024-10-04 | XR_ITS ---
EXAMINATION: XR surgery orthopedic DATE: 10/04/2024 12:14 INDICATION: Anterior approach right total hip arthroplasty TECHNIQUE: A frontal fluoroscopic image of the right hip was obtained during procedure performed by Goldy Wright. Radiologist was not present for the imaging or procedure. The amount of fluoroscopy time used during this procedure was 1.0 minutes. Total DAP was 0.664 mGycm^2 COMPARISON: None. FINDINGS: Noncemented right total hip arthroplasty appears in near-anatomic alignment. No evident fracture. Exp ected soft tissue gas at the operative bed. IMPRESSION: 1. Fluoroscopy utilized during right total hip arthroplasty. See procedure note for further detail. Reviewed, dictated and finalized at location B. RTMENT STORE SALESPERSON
--- NOTE | ~2024-10-04 | XR_ITS ---
EXAMINATION: XR hip RT 1V w AP pelvis DATE: 10/04/2024 12:15 INDICATION: Total right hip arthroplasty. Postop. TECHNIQUE: An anteroposterior view of the pelvis and single view of right hip were obtained. COMPARISON: Pelvis and right hip radiographs 08/12/2024 FINDINGS: There is a total right hip arthroplasty in near-anatomic alignment. No fracture. There is m ild left hip osteoarthritis. There are changes of anterior and posterior fusion procedures at L5-S1. IMPRESSION: 1. Total right hip arthroplasty in near-anatomic alignment. Reviewed, dictated and finalized at location A. ILE PROC TECH
--- OUTSIDE RECORDS SUMMARY | 2024-10-04 00:59 | XMS_ITS | CONTINUITY OF CARE DOCUMENT ---
Author Name jeyson marthacelestino Address Unknown Organization [facility] Address [address] [place] [address] [place] [address] Phone [phone] Care Team Providers Care Installation And Service Technician Name Role Phone Gaurav MARIN, Christine Unavailable [phone] ADA SCOTT MD Unavailable [phone] PROBLEMS Condition Status Date Provider Notes Family [...] In-person encounter Office Visit Christine Nolasco MD [facility] Family History of Hypertension:Family History of Hypertension:Mild nonobstructive CADPre-operative cardiovascular examination - In-person encounter Office Visit Christine Nolasco MD [facility] - In-person encounter Office Visit Christine Nolasco MD [facility] Mild nonobstructive CADPalpitations - In-person encounter Office Visit Christine Nolasco MD [facility] Abnormal EKGHyperlipidemiaHTN VITAL SIGNS Date Observation Value Provider Body Mass Index (Ratio) 33.50 kg/m2 Arun colón Ruby blood pressure, diastolic, left arm 90 mm [Hg] [facility] blood pressure, systolic, left arm 140 mm [Hg] [facility] blood pressure, diastolic, right arm 92 m m[Hg] [facility] blood pressure, systolic, right arm 150 m m[Hg] [facility] blood pressure, diastolic 78 mm[Hg] Lang Nolasco MD blood pressure, systolic 132 mm[Hg] Jean Carlos Nolasco MD oxygen saturation, oximetry 97 % [facility] respiratory rate E&M 16 /min [facility] pulse rate 75 /min [facility] weight E&M 247 [lb_av] [facility] height E&M 72 [in_i] [facility] Body Mass Index (Ratio) 33.22 kg/m2 [...] Yola Zuleima weight E&M 251.4 [lb_av] Yola [facility] y Body Mass Index (Ratio) 34.04 kg/m2 [...] Ten олег Zuleima blood pressure, resting [facility] oxygen saturation, oximetry 97 % [...] Payer name Policy type / Coverage type [employer] party ID [facility] Other [id number] ADVANCE DIRECTIVES Name Date DISCUSSED - NO [...] EKG Christine Nolasco MD complet ed SNOMED-CT: [id number] Current Medications Documented Christine Nolasco MD completed SNOMED-CT: 73296063 Physical Exam, Performed: Pulse Exam of Foot Christine Nolasco MD completed EKG Christine Nolasco MD complet ed SNOMED-CT: [id number] Current Medications Documented Christine Nolasco MD completed Protime Christine Nolasco MD complet ed SNOMED-CT: 70101359 Physical Exam, Performed: Pulse Exam of Foot Christine Nolasco MD completed EKG Christine Nolasco MD complet ed SNOMED-CT: [id number] Current Medications Documented Christine Nolasco MD completed Cardiolite, 2 units Celso Aranda MD completed SPECT Images Celso Aranda MD completed Stress EKG Celso Aranda MD completed Mobile Cardiac Telem etry - Tech Christine Nolasco MD completed Mobile Cardiac Telem etry - Prof Christine Nolasco MD completed Mobile Cardiac Telem etry - Prof Christine Nolasco MD completed EKG Christine Nolasco MD complet ed SNOMED-CT: [id number] Current Medications Documented Christine Nolasco MD completed
[2024-10-04] MEDS: LACTATED RINGERS 1,000 ML 30 ML IV CONT ×2 (06:30→11:51)
[2024-10-04] MEDS: VANCOMYCIN 2,000 MG/NS 500 ML BAG 250 MG IVPB (06:30)
[2024-10-04 06:43] LABS: Glucose Point of Care 133 mg/dl (65-105)
--- NOTE | 2024-10-04 06:52 | WPDANESEPPF ---
Anes - Initial Pre Proc Eval Procedure: Operation Date: 10/04/24 07:30 Proposed Procedures p Right Total Hip Arthroplasty, Anterior Approach - Rahat Wright MD Date/Time: 10/04/24 06:52 Surgeon: Rahat Wright MD Pre Op Diagnosis: O A Rt Hip Patient Data Age: 59 Gender: M Height: 1.83 m Weight: 124 kg Last Vital Signs Temp 36.4 C 09/12/24 09:06 Pulse 69 09/12/24 09:06 Resp 16 09/12/24 09:06 BP 158/86 H 09/12/24 09:06 Pulse Ox 98 09/12/24 09:06 O2 Del Method Room Air 09/12/24 09:06 Allergies Allergy/AdvReac Type Severity Reaction Status Date / Time No Known Allergies Allergy Unknown Verified 10/04/24 06:44 Home Medications ?Medication ?Instructions ?Recorded ?Confirmed ?Type aspirin 81 mg tablet 81 mg PO DAILY 05/27/24 10/04/24 History glimepiride 2 mg tablet 2 mg PO BID 05/27/24 10/04/24 History glimepiride 4 mg tablet 4 mg PO HS 05/27/24 10/04/24 History losartan 100 1 tablet PO DAILY 05/27/24 10/04/24 History mg-hydrochlorothiazide 12.5 mg tablet metoprolol succinate 50 mg 50 mg PO DAILY 05/27/24 10/04/24 History tablet,extended release 24 hr simvastatin 40 mg tablet 1 mg PO DAILY 05/27/24 10/04/24 History acetaminophen 500 mg tablet 1,000 mg PO Q6H PRN pain 09/12/24 10/04/24 History (Tylenol Extra Strength) ibuprofen 200 mg tablet (Advil) 400 mg PO Q6H PRN pain 09/12/24 10/04/24 History mupirocin 2 % topical ointment 1 applic topical BID #22 grams 09/19/24 10/04/24 Rx Laboratory Tests 10/04/24 10/04/24 06:21 06:34 POC Capillary Glucose 133 H mg/dl (65-105) Blood Type Pending Antibody Screen Pending Patient hx anesthesia problems: none Family hx anesthesia problems: none Results Review: All pre-operative results and documents have been reviewed as part of the pre-operative evaluation. [facility] Past Medical History Medical History Colon cancer screening RUQ pain Obstructive sleep apnea (~05/2020) History of perforation of tympanic membrane repaired surgically Gastroesophageal reflux disease Impaired fasting glucose Hyperlipidemia Hypertension Surgical History Surgical History History of discectomy 2019 History of spinal fusion 2018 Social History Social History Smoking status: Never smoker Alcohol intake: current Drinks per week: 2 Alcohol use details: 2 beers a week Substance use type: does not use Do You Feel Safe in your Home?: Yes Lack of Transportation: No Lack of Food: Never True Current Housing: I Have Housing Concerned About Future Housing: No Difficulty Paying Gas/Electric Bills: No Difficulty Paying for Meds: No Currently Unemployed: No Education: High School Diploma/GED Difficulty w/ Childcare or Family Care: No Living arrangements: with family Additional living arrangements comments: with Spiritual care concerns: No Comments Neg stress, echo shows normal EF Anes - Eval Final PreProcedure Day of Procedure 10/04/24 06:52 Patient weight: obese Heart: regular rate and rhythm Lungs: clear to auscultation Airway: Mallampati scale class III Neurological: alert and oriented Last oral intake: >/= 8 hours ASA classification: III Emergent: no Anesthetic plan: proceed Anesthesia type and monitoring: general ETT and standard monitoring Results Review: All pre-operative results and documents have been reviewed as part of the pre-operative evaluation. Informed Consent: The patient's anesthetic plan and its attendant risks and benefits were discussed with the patient/family/POA. Questions were solicited and answers provided to the satisfaction of the patient/family/POA.
[2024-10-04] MEDS: TRANEXAMIC ACID 1,000MG/ISO100 1,000 MG/100 ML BAG 200 MG IVPB (06:55)
[2024-10-04] MEDS: ACETAMINOPHEN 500 MG TABLET 1000 MG PO (06:55)
--- NOTE | 2024-10-04 07:19 | WPDHPUPDATE1 ---
History and Physical Update Update Date/Time: 10/04/24 07:19 History and Physical has been reviewed, including an updated exam of the patient. There are NO changes in the patient's condition. Risks, benefits, and alternatives have been discussed and questions answered. Patient agrees to proceed with procedure.
[2024-10-04] MEDS: ceFAZolin 3 GM/D5W 100 ML 100 ML IVPB (07:30)
[2024-10-04] MEDS: SODIUM CHLORIDE 0.9% IV 37.7 ML, MORPHINE SULFATE INJ (*CRX) 2 MG, ROPivacaine HCL 1% 2... INFILTRATE (08:19)
[2024-10-04] MEDS: ceFAZolin SODIUM 1 GM VIAL 3 GM (08:19)
[2024-10-04] MEDS: TRANEXAMIC ACID 1,000 MG/10 ML AMPUL 1000 MG IV PUSH (10:59)
[2024-10-04] MEDS: ceFAZolin SODIUM 1 GM VIAL 2 GM IV PUSH (10:59)
[2024-10-04] MEDS: KETOROLAC 15 MG/ML VIAL (*BKC) IV PUSH ×2 (11:06→17:58)
--- NOTE | 2024-10-04 11:36 | P.OP_ITS ---
Procedure Note - Detailed Date of Procedure 10/04/24 Pre-op Diagnosis O A Rt Hip, Obesity Post-op Diagnosis Same Procedure Performed Right total hip arthroplasty, direct anterior approach Surgeon Rahat Wright MD Railroad Passenger Agent Lelo Anesthesia General Description of Procedure Patient was brought to the operating room and general anesthesia was administered. He received 3 g of Ancef weight based vancomycin 1 g of TXA preoperatively. Oliva catheter was placed. Boots were applied to the feet after padding. SCDs were applied to the calves and running during the procedure. He was transferred to the [facility] table in the right hip prepped draped usual fashion. Due to his obesity 121 kg BMI of 36, this added extra difficulty to the procedure approximately 1 hour of surgical time. A 10 cm longitudinal incision was made 3 cm lateral to the ASIS. Dissection was carried down to the fascia over the tensor fascia rocael which was exposed and longitudinally incised and elevated off the anterior 50% of the tensor fascia rocael muscle. Interval between the tensor fascia rocael and rectus femoris developed and crossing branches of ascending lateral femoral circumflex vessels were isolated, ligated with suture divided. A retractor was placed anterior capsule. The hip abducted internally rotated and the gluteus minimus elevated off the lateral capsule. Inverted T capsulotomy was performed and a femoral neck osteotomy made according to preoperative template. The the acetabular labrum was excised the leg was externally rotated extended and the interval between piriformis and conjoined tendon knee at the lateral base of the femoral neck was incised allowing the conjoined tendon to recess. With the leg back in the horizontal position, the acetabulum was exposed and prepared using fluoroscopic guidance. We medialized with a 44 Reamer and reamed up to a size 53 which just reach the periphery on reaming and a light reaming with the 54 was performed. The 54 trial was tight and seated fully. The 54 pinnacle cup was impacted at 40? of abduction and appropriate anteversion. He had a large anterior osteophyte on the acetabulum. A single screw was placed in the ilium which obtained excellent purchase and the 36 inner diameter polyethylene liner fully seated. Removal of the size of the anterior and inferior acetabular osteophyte was 4. The leg was externally rotated and extended and we broached up to a size 8 which gave torsional stability. The 7 had torsional play. The canal Reamer was required in order for the size 8 to seat fully due to impingement in the canal. We used use the for 5 Reamer which allowed us to see the size 8 properly. Intraoperative x-ray was obtained which showed that we were about 3 mm long with the +5 standard offset head the we calcar planed provisionally and countersunk the broach another 3 mm and on re trialing leg lengths appeared equal on fluoroscopic imaging. We confirmed complete torsional stability of the broach and completed the calcar planing process and the size 8 Actis standard offset stem was seated fully without difficulty. We trialed the +5 again and had appropriate soft tissue tension and stability. Real ceramic +5 x 36 head was impacted on the clean and dried trunnion and after thorough irrigation with Ancef solution hip was reduced stability reconfirmed. The local anesthetic cocktail was injected into the periarticular soft tissues. Patient was given additional two g Ancef 1 g of TXA at time of closure. The superior limb of the capsulotomy was reapproximated with 2. Vicryl. The fascia was closed with running 1. Vicryl a drain left deep in the subcu skin closed with 2 subcutaneous Vicryl and glue. EBL was 500 cc any was given 250 cc back as Cell Saver blood. There were no complications he was transferred to postop recovery room was the addition. Bone quality was excellent. We will allow him to be weight-bearing as tolerated. [facility] Billing Surgery - Charge Forward: Surgery Billing (Right total hip arthroplasty, extra d ifficulty due to obesity)
--- NOTE | 2024-10-04 11:56 | PM.OP ---
Procedure Note - Brief Procedure Note - Brief Date of procedure: 10/04/24 O A Rt Hip Procedure performed: Right anterior total hip arthroplasty Surgeon: ANDREIA Grajeda Findings: 59-year-old male who underwent right anterior total hip arthroplasty on 10/04. I was involved in the procedure including positioning the patient on the OR table in 1st assisting through the time surgery. Total time spent was 4 hours
[2024-10-04 12:13] LABS: Glucose Point of Care 172 mg/dl (65-105)
[2024-10-04] MEDS: fentaNYL CITRATE INJ (*CRX) 100 MCG/2 ML VIAL 25 MCG IV PUSH ×2 (12:30→12:32)
--- NOTE | 2024-10-04 12:53 | SUR.PHASEI ---
patient became clammy stated he gets this way when his blood sugar gets low, first blood glucose was 176, rechecked it due to patient stating it still felt like he was crashing and it was 164.
[2024-10-04 13:08] LABS: Glucose Point of Care 176 mg/dl (65-105)
[2024-10-04 13:08] LABS: Glucose Point of Care 184 mg/dl (65-105)
[2024-10-04 13:08] LABS: Glucose Point of Care 167 mg/dl (65-105)
--- NOTE | 2024-10-04 13:46 | ADMGEN ---
This patient, Bernardo Ca, was admitted to 2 Medical Room 256-. Patient/family oriented to hospital policies and general routines including ID bracelet, bed and alarms, visiting hours, pain management, procedures, bathroom and other care routines, personal items, smoking policy, room service/diet, and visiting hours. Information on how to activate the Rapid Response Team has been discussed. Patient/Family are encouraged to report perceived risks to care and to ask questions if they do not understand what they are told or what they should do.
[2024-10-04] MEDS: ACETAMINOPHEN 325 MG TABLET 650 MG PO ×3 (14:04→21:29)
[2024-10-04] MEDS: oxyCODONE HCL (*CRX) 5 MG TAB IR PO ×3 (14:04→20:22)
[2024-10-04] MEDS: SENNA/DOCUSATE SODIUM TABLET 2 TAB PO (17:22)
[2024-10-04] MEDS: ceFAZolin 2 GM/D5W 50 ML 2 GM/50 ML BAG IVPB (17:59)
[2024-10-04] MEDS: VANCOMYCIN 1,000 MG/NS 250 ML 1,000 MG/250 ML BAG 250 MG IVPB (18:33)
[2024-10-04 19:26] LABS: Glucose Point of Care 210 mg/dl (65-105)
[2024-10-04] MEDS: GLIMEPIRIDE 2 MG TABLET 6 MG PO (20:22)
[2024-10-04] MEDS: FAMOTIDINE 20 MG TABLET PO (20:23)
[2024-10-05] MEDS: ceFAZolin 2 GM/D5W 50 ML 2 GM/50 ML BAG IVPB ×2 (01:09→09:26)
[2024-10-05] MEDS: KETOROLAC 15 MG/ML VIAL (*BKC) IV PUSH (01:09)
[2024-10-05] MEDS: oxyCODONE HCL (*CRX) 5 MG TAB IR PO ×3 (01:10→08:39)
[2024-10-05] MEDS: ACETAMINOPHEN 325 MG TABLET 650 MG PO ×3 (01:10→09:26)
[2024-10-05] MEDS: VANCOMYCIN 1,000 MG/NS 250 ML 1,000 MG/250 ML BAG 250 MG IVPB (05:31)
[2024-10-05 05:36] VITALS: BP 107/65; PULSE 63; RESP 16; TEMP 36.6; O2SAT 96
[2024-10-05 06:23] LABS: Basophils Percent Auto 0.1 % (0.2-1.2); Eosinophils Percent Auto 0.1 % (0-4.4); Hemoglobin 12.4 g/dL (14.0-18.0); Immature Granulocyte Absolute 0.14 K/mm3 (0.00-0.031); Immature Granulocyte Percent A 1.1 % (0-0.5); Lymphocytes Absolute Auto 1.57 K/mm3 (0.9-3.2); Lymphocytes Percent Auto 12.5 % (18.3-44.2); Mean Corpuscular HGB Conc 32.6 g/dl (32-36); Mean Corpuscular Hemoglobin 30.8 pg (26-34); Mean Corpuscular Volume 94.3 fl (80-100); Mean Platelet Volume 9.7 fl (7.4-10.4); Monocytes Absolute Auto 1.5 K/mm3 (0.1-0.6); Monocytes Percent Auto 11.8 % (2.6-8.5); Neutrophils Absolute Auto 9.4 K/mm3 (1.3-6.7); Neutrophils Percent Auto 74.4 % (45.5-73.1); Platelet Count Result 178 k/mm3 (150-375); Red Blood Count 4.03 M/mm3 (4.6-6.20); Red Cell Distribution Width 12.5 % (11.5-14.5); White Blood Count 12.6 K/mm3 (4.5-10.0)
[2024-10-05 06:44] LABS: Blood Urea Nitrogen 15 mg/dL (9-20); Calcium 8.8 mg/dL (8.4-10.2); Carbon Dioxide 26 mmol/L (22-30); Chloride 103 mmol/L (98-107); Estimated CRCL calculation 119 ml/min; Estimated Glomerular Filt Rate > 60; Glucose 141 mg/dL (65-110)
[2024-10-05 06:56] LABS: Potassium 4.2 mmol/L (3.4-5.0)
--- NOTE | 2024-10-05 07:45 | P.PNOP_ITS ---
Subjective Subjective Date/Time Seen: 10/05/24 07:45 Interval history: Postop day 1 patient is alert. He has been afebrile vital signs are stable. He was up walking yesterday with physical therapy in the halls and comfortable. Pain is very well controlled. His drain is out dressing is dry. Neurovascularly he is intact. Morning labs are noted. Overall patient is doing very well is eager to. We will have him work with physical therapy this morning then once IV antibiotics been completed he will discharged home. Objective Data Vital Signs Vital Signs: Vital Signs - 24 hr 10/04/24 11:51 10/04/24 12:00 10/04/24 12:15 Temperature 97.8 F Pulse Rate 72 78 77 Respiratory Rate 15 18 16 Blood Pressure 115/57 L 123/55 L 133/58 L Pulse Oximetry 96 99 99 Oxygen Delivery Simple Face Mask Simple Face Mask Simple Face Mask Oxygen Flow Rate 8 8 8 10/04/24 12:18 10/04/24 12:30 10/04/24 12:45 Temperature Pulse Rate 75 77 Respiratory Rate 15 13 Blood Pressure 130/69 134/57 L Pulse Oximetry 96 93 94 Oxygen Delivery Room Air Nasal Cannula Nasal Cannula Oxygen Flow Rate 2 2 10/04/24 13:00 10/04/24 13:15 10/04/24 13:20 Temperature Pulse Rate 69 66 62 Respiratory Rate 15 16 15 Blood Pressure 116/62 117/62 125/76 Pulse Oximetry 94 94 93 Oxygen Delivery Nasal Cannula Nasal Cannula Room Air Oxygen Flow Rate 2 2 10/04/24 13:44 10/04/24 13:45 10/04/24 14:00 Temperature 97.4 F L 97.1 F L Pulse Rate 62 73 Respiratory Rate 16 16 Blood Pressure 125/67 129/54 L Pulse Oximetry 93 94 97 Oxygen Delivery Nasal Cannula Oxygen Flow Rate 2 10/04/24 14:30 10/04/24 15:17 10/04/24 15:30 Temperature 97.7 F 97.6 F Pulse Rate 51 L 63 Respiratory Rate 16 16 Blood Pressure 119/60 130/64 Pulse Oximetry 94 94 96 Oxygen Delivery Room Air Oxygen Flow Rate 10/04/24 20:20 10/04/24 21:53 10/04/24 23:08 Temperature 97.8 F 98.6 F Pulse Rate 74 61 Respiratory Rate 16 16 Blood Pressure 126/73 119/58 L Pulse Oximetry 97 96 Oxygen Delivery Autopap Oxygen Flow Rate 10/05/24 02:05 10/05/24 05:36 Temperature 97.8 F Pulse Rate 63 Respiratory Rate 16 Blood Pressure 107/65 Pulse Oximetry 96 Oxygen Delivery Autopap Oxygen Flow Rate Intake/Output Intake/Output: Intake & Output 10/02/24 10/03/24 10/04/24 10/05/24 23:59 23:59 23:59 23:59 Intake Total 1140 600 Output Total 30 40 Balance 1110 560 Meds/Results Medications: Active Medications Generic Name Dose Route Start Last Admin Trade Name Freq PRN Reason Stop Dose Admin Acetaminophen 650 mg 10/04/24 14:00 10/05/24 05:30 Acetaminophen 325 Mg Tablet PO 650 mg Q4H JUSTINO Administration Apixaban 2.5 mg 10/05/24 09:00 Apixaban 2.5 Mg Tablet PO 11/08/24 21:01 Q12HR JUSTINO Aspirin 81 mg 10/05/24 09:00 Aspirin 81 Mg Enteric Tablet PO 11/04/24 08:59 DAILY JUSTINO Celecoxib 200 mg 10/05/24 09:00 Celecoxib 200 Mg Capsule PO DAILY JUSTINO Cephalexin HCl 750 mg 10/05/24 12:00 Cephalexin 250 Mg Capsule PO Q6HR JUSTINO Famotidine 20 mg 10/04/24 21:00 10/04/24 20:23 Famotidine 20 Mg Tablet PO 20 mg Q12HR JUSTINO Administration Glimepiride 2 mg 10/05/24 09:00 Glimepiride 2 Mg Tablet PO QAM JUSTINO Glimepiride 6 mg 10/04/24 21:00 10/04/24 20:22 Glimepiride 2 Mg Tablet PO 6 mg HS JUSTINO Administration Hydrochlorothiazide 12.5 mg 10/05/24 09:00 Hydrochlorothiazide 12.5 Mg Capsule PO DAILY JUSTINO Cefazolin Sodium 2 gm in 50 mls @ 100 mls/hr 10/04/24 18:00 10/05/24 01:39 Ancef 2 Gm/D5w 50 Ml IVPB 10/05/24 10:29 Infused Q8H JUSTINO Infusion Losartan Potassium 100 mg 10/05/24 09:00 Losartan Potassium 100 Mg Tablet PO 11/04/24 08:59 DAILY JUSTINO Metoprolol Succinate 50 mg 10/05/24 09:00 Metoprolol Succinate Ext Rel 50 Mg Tabcr PO DAILY [facility] Morphine Sulfate 2 mg 10/04/24 13:23 Morphine Sulfate (*Crx) 2 Mg/Ml Inj IV PUSH Q2H PRN Breakthrough Pain Rated 4-6 or NPO Naloxone HCl 0.1 mg 10/04/24 13:23 Naloxone Hcl 0.4 Mg/Ml Vial IV PUSH Q2M PRN Opiate Reversal Ondansetron HCl 4 mg 10/04/24 13:23 Ondansetron Inj 4 Mg/2 Ml Vial IV PUSH Q4H PRN Nausea And Vomiting Oxycodone HCl 5 mg 10/04/24 13:00 10/05/24 05:30 Oxycodone Hcl (*Crx) 5 Mg Tab Ir PO 5 mg Q4H JUSTINO Administration Oxycodone HCl 5 mg 10/04/24 13:23 Oxycodone Hcl (*Crx) 5 Mg Tab Ir PO Q4H PRN Pain Rated 7-10 Polyethylene Glycol 17 gm 10/05/24 09:00 Polyethylene Glycol 3350 17 Gm Powd.Pack PO QAM [facility] Senna/Docusate Sodium 2 tab 10/04/24 17:00 10/04/24 17:22 Senna/Docusate Sodium Tablet PO 2 tab BID JUSTINO Administration Simvastatin 40 mg 10/05/24 09:00 Simvastatin 20 Mg Tablet PO DAILY [facility] Radiology Results: ITS Impressions Intraoperative X-Ray 10/04/24 12:17 IMPRESSION: 1. Fluoroscopy utilized during right total hip arthroplasty. See procedure note for further detail. Hip/Pelvis X-Ray 10/04/24 12:19 IMPRESSION: 1. Total right hip arthroplasty in near-anatomic alignment. Labs Labs: Laboratory Results - last 24 hr 10/04/24 10/04/24 10/04/24 06:21 12:10 12:34 WBC RBC Hgb Hct MCV MCH MCHC RDW Plt Count MPV Immature Gran % (Auto) Neut % (Auto) Lymph % (Auto) [place] % (Auto) Eos % (Auto) Baso % (Auto) Lymph # (Auto) [place] # (Auto) Eos # (Auto) Baso # (Auto) Abs Immat Gran (auto) Absolute Neuts (auto) Absolute Nucleated RBC Nucleated RBC % Potassium Chloride Carbon Dioxide BUN Creatinine Estim Creat Clear Calc Estimated GFR Glucose POC Capillary Glucose 172 H 184 H Calcium Antibody Screen Negative 02/10/04/24 10/04/24 12:36 12:48 19:23 WBC RBC Hgb Hct MCV MCH MCHC RDW Plt Count MPV Immature Gran % (Auto) Neut % (Auto) Lymph % (Auto) [place] % (Auto) Eos % (Auto) Baso % (Auto) Lymph # (Auto) [place] # (Auto) Eos # (Auto) Baso # (Auto) Abs Immat Gran (auto) Absolute Neuts (auto) Absolute Nucleated RBC Nucleated RBC % Potassium Chloride Carbon Dioxide BUN Creatinine Estim Creat Clear Calc Estimated GFR Glucose POC Capillary Glucose 176 H 167 H 210 H Calcium Antibody Screen 10/05/24 05:58 WBC 12.6 H RBC 4.03 L Hgb 12.4 L D Hct 38.0 L MCV 94.3 MCH 30.8 MCHC 32.6 RDW 12.5 Plt Count 178 MPV 9.7 Immature Gran % (Auto) 1.1 H Neut % (Auto) 74.4 H Lymph % (Auto) 12.5 L [place] % (Auto) 11.8 H Eos % (Auto) 0.1 Baso % (Auto) 0.1 L Lymph # (Auto) 1.57 [place] # (Auto) 1.5 H Eos # (Auto) 0.0 Baso # (Auto) 0.0 Abs Immat Gran (auto) 0.14 H Absolute Neuts (auto) 9.4 H Absolute Nucleated RBC 0.000 Nucleated RBC % 0.0 Potassium 4.2 Chloride 103 Carbon Dioxide 26 BUN 15 Creatinine 0.76 Estim Creat Clear Calc 119 Estimated GFR > 60 Glucose 141 H POC Capillary Glucose Calcium 8.8 Antibody Screen
[2024-10-05 07:53] LABS: Anion Gap 9 mmol/L (4-12); Sodium 138 mmol/L (137-145)
[2024-10-05 08:00] VITALS: BP 117/61; PULSE 64; RESP 18; TEMP 36.4; O2SAT 96
--- NOTE | 2024-10-05 08:01 | P.PNIM_ITS ---
Progress Note: A&P Assessment and Plan (1) Hypertension: Code(s): I10 - Essential (primary) hypertension Status: Acute (2) Hyperlipidemia: Code(s): E78.5 - Hyperlipidemia, unspecified Status: Acute (3) Osteoarthritis of right hip: Qualifiers: Osteoarthritis type: primary Qualified Code(s): M16.11 - Unilateral primary osteoarthritis, right hip Code(s): M16.11 - Unilateral primary osteoarthritis, right hip Status: Acute (4) Obstructive sleep apnea: Onset Date: ~05/2020 Code(s): G47.33 - Obstructive sleep apnea (adult) (pediatric) Status: Acute Plan 59-year-old male had right anterior total hip arthroplasty. His other chronic problems are: HTN: 117/61. he is on HCTZ 12.5 mg, losartan 100 mg, metoprolol 50 mg GERDs: famotidine T2dM: glimepiride 6 mg hs- BS had been well controlled HLD: simvastatin 40 mg Time Spent With Patient Time with patient: 25 - 35 minutes Subjective Date/time seen: 10/05/24 08:01 Interval history: 59-year-old male who underwent right anterior total hip arthroplasty on 10/04. Hospitalist was consulted for medical mngmnt ortho saw him this am- plant to possible discharge once iv antibiotics are completed. Exam Narrative: pt left prior to being seen Objective Data Vital Signs Vital Signs: Vital Signs - 24 hr 10/04/24 11:51 10/04/24 12:00 10/04/24 12:15 Temperature 97.8 F Pulse Rate 72 78 77 Respiratory Rate 15 18 16 Blood Pressure 115/57 L 123/55 L 133/58 L Pulse Oximetry 96 99 99 Oxygen Delivery Simple Face Mask Simple Face Mask Simple Face Mask Oxygen Flow Rate 8 8 8 10/04/24 12:18 10/04/24 12:30 10/04/24 12:45 Temperature Pulse Rate 75 77 Respiratory Rate 15 13 Blood Pressure 130/69 134/57 L Pulse Oximetry 96 93 94 Oxygen Delivery Room Air Nasal Cannula Nasal Cannula Oxygen Flow Rate 2 2 10/04/24 13:00 10/04/24 13:15 10/04/24 13:20 Temperature Pulse Rate 69 66 62 Respiratory Rate 15 16 15 Blood Pressure 116/62 117/62 125/76 Pulse Oximetry 94 94 93 Oxygen Delivery Nasal Cannula Nasal Cannula Room Air Oxygen Flow Rate 2 2 10/04/24 13:44 10/04/24 13:45 10/04/24 14:00 Temperature 97.4 F L 97.1 F L Pulse Rate 62 73 Respiratory Rate 16 16 Blood Pressure 125/67 129/54 L Pulse Oximetry 93 94 97 Oxygen Delivery Nasal Cannula Oxygen Flow Rate 2 10/04/24 14:30 10/04/24 15:17 10/04/24 15:30 Temperature 97.7 F 97.6 F Pulse Rate 51 L 63 Respiratory Rate 16 16 Blood Pressure 119/60 130/64 Pulse Oximetry 94 94 96 Oxygen Delivery Room Air Oxygen Flow Rate 10/04/24 20:20 10/04/24 21:53 10/04/24 23:08 Temperature 97.8 F 98.6 F Pulse Rate 74 61 Respiratory Rate 16 16 Blood Pressure 126/73 119/58 L Pulse Oximetry 97 96 Oxygen Delivery Autopap Oxygen Flow Rate 10/05/24 02:05 10/05/24 05:36 Temperature 97.8 F Pulse Rate 63 Respiratory Rate 16 Blood Pressure 107/65 Pulse Oximetry 96 Oxygen Delivery Autopap Oxygen Flow Rate Intake/Output Intake/Output: Intake & Output 10/02/24 10/03/24 10/04/24 10/05/24 23:59 23:59 23:59 23:59 Intake Total 1140 600 Output Total 30 40 Balance 1110 560 Meds/Results Medications: Active Medications Generic Name Dose Route Start Last Admin Trade Name Freq PRN Reason Stop Dose Admin Acetaminophen 650 mg 10/04/24 14:00 10/05/24 05:30 Acetaminophen 325 Mg Tablet PO 650 mg Q4H [facility] Administration Apixaban 2.5 mg 10/05/24 09:00 Apixaban 2.5 Mg Tablet PO 11/08/24 21:01 Q12HR [facility] Aspirin 81 mg 10/05/24 09:00 Aspirin 81 Mg Enteric Tablet PO 11/04/24 08:59 DAILY [facility] Celecoxib 200 mg 10/05/24 09:00 Celecoxib 200 Mg Capsule PO DAILY [facility] Cephalexin HCl 750 mg 10/05/24 12:00 Cephalexin 250 Mg Capsule PO Q6HR [facility] Famotidine 20 mg 10/04/24 21:00 10/04/24 20:23 Famotidine 20 Mg Tablet PO 20 mg Q12HR [facility] Administration Glimepiride 2 mg 10/05/24 09:00 Glimepiride 2 Mg Tablet PO QAM [facility] Glimepiride 6 mg 10/04/24 21:00 10/04/24 20:22 Glimepiride 2 Mg Tablet PO 6 mg HS [facility] Administration Hydrochlorothiazide 12.5 mg 10/05/24 09:00 Hydrochlorothiazide 12.5 Mg Capsule PO DAILY [facility] Cefazolin Sodium 2 gm in 50 mls @ 100 mls/hr 10/04/24 18:00 10/05/24 01:39 Ancef 2 Gm/D5w 50 Ml IVPB 10/05/24 10:29 Infused Q8H [facility] Infusion Losartan Potassium 100 mg 10/05/24 09:00 Losartan Potassium 100 Mg Tablet PO 11/04/24 08:59 DAILY [facility] Metoprolol Succinate 50 mg 10/05/24 09:00 Metoprolol Succinate Ext Rel 50 Mg Tabcr PO DAILY [facility] Morphine Sulfate 2 mg 10/04/24 13:23 Morphine Sulfate (*Crx) 2 Mg/Ml Inj IV PUSH Q2H PRN Breakthrough Pain Rated 4-6 or NPO Naloxone HCl 0.1 mg 10/04/24 13:23 Naloxone Hcl 0.4 Mg/Ml Vial IV PUSH Q2M PRN Opiate Reversal Ondansetron HCl 4 mg 10/04/24 13:23 Ondansetron Inj 4 Mg/2 Ml Vial IV PUSH Q4H PRN Nausea And Vomiting Oxycodone HCl 5 mg 10/04/24 13:00 10/05/24 05:30 Oxycodone Hcl (*Crx) 5 Mg Tab Ir PO 5 mg Q4H [facility] Administration Oxycodone HCl 5 mg 10/04/24 13:23 Oxycodone Hcl (*Crx) 5 Mg Tab Ir PO Q4H PRN Pain Rated 7-10 Polyethylene Glycol 17 gm 10/05/24 09:00 Polyethylene Glycol 3350 17 Gm Powd.Pack PO QAM [facility] Senna/Docusate Sodium 2 tab 10/04/24 17:00 10/04/24 17:22 Senna/Docusate Sodium Tablet PO 2 tab BID [facility] Administration Simvastatin 40 mg 10/05/24 09:00 Simvastatin 20 Mg Tablet PO DAILY [facility] Radiology Results: ITS Impressions Intraoperative X-Ray 10/04/24 12:17 IMPRESSION: 1. Fluoroscopy utilized during right total hip arthroplasty. See procedure note for further detail. Hip/Pelvis X-Ray 10/04/24 12:19 IMPRESSION: 1. Total right hip arthroplasty in near-anatomic alignment. Labs Labs: Laboratory Results - last 24 hr 10/04/24 10/04/24 10/04/24 12:10 12:34 12:36 WBC RBC Hgb Hct MCV MCH MCHC RDW Plt Count MPV Immature Gran % (Auto) Neut % (Auto) Lymph % (Auto) Butler % (Auto) Eos % (Auto) Baso % (Auto) Lymph # (Auto) Butler # (Auto) Eos # (Auto) Baso # (Auto) Abs Immat Gran (auto) Absolute Neuts (auto) Absolute Nucleated RBC Nucleated RBC % Sodium Potassium Chloride Carbon Dioxide Anion Gap BUN Creatinine Estim Creat Clear Calc Estimated GFR Glucose POC Capillary Glucose 172 H 184 H 176 H Calcium 10/04/24 10/04/24 10/05/24 12:48 19:23 05:58 WBC 12.6 H RBC 4.03 L Hgb 12.4 L D Hct 38.0 L MCV 94.3 MCH 30.8 MCHC 32.6 RDW 12.5 Plt Count 178 MPV 9.7 Immature Gran % (Auto) 1.1 H Neut % (Auto) 74.4 H Lymph % (Auto) 12.5 L Butler % (Auto) 11.8 H Eos % (Auto) 0.1 Baso % (Auto) 0.1 L Lymph # (Auto) 1.57 Butler # (Auto) 1.5 H Eos # (Auto) 0.0 Baso # (Auto) 0.0 Abs Immat Gran (auto) 0.14 H Absolute Neuts (auto) 9.4 H Absolute Nucleated RBC 0.000 Nucleated RBC % 0.0 Sodium 138 Potassium 4.2 Chloride 103 Carbon Dioxide 26 Anion Gap 9 BUN 15 Creatinine 0.76 Estim Creat Clear Calc 119 Estimated GFR > 60 Glucose 141 H POC Capillary Glucose 167 H 210 H Calcium 8.8
[2024-10-05] MEDS: GLIMEPIRIDE 2 MG TABLET PO (08:37)
[2024-10-05] MEDS: LOSARTAN POTASSIUM 100 MG TABLET PO (08:38)
[2024-10-05] MEDS: SIMVASTATIN 20 MG TABLET 40 MG PO (08:38)
[2024-10-05] MEDS: CELECOXIB 200 MG CAPSULE PO (08:38)
[2024-10-05] MEDS: SENNA/DOCUSATE SODIUM TABLET 2 TAB PO (08:38)
[2024-10-05 08:39] VITALS: PULSE 64
[2024-10-05] MEDS: APIXABAN 2.5 MG TABLET PO (08:39)
[2024-10-05] MEDS: ASPIRIN 81 MG ENTERIC TABLET PO (08:39)
[2024-10-05] MEDS: FAMOTIDINE 20 MG TABLET PO (08:39)
[2024-10-05] MEDS: METOPROLOL SUCCINATE EXT REL 50 MG TABCR PO (08:39)
[2024-10-05] MEDS: hydroCHLOROthiazide 12.5 MG CAPSULE PO (08:40)
[2024-10-05] MEDS: polyethylene glycoL 3350 17 GM POWD.PACK PO (08:40)
== END 2024-10-05 10:30 | disposition home or self-care (01) ==
LOC: ANHSURGERY 05:50 → ANH2MED 13:24
PROVIDERS: Physician Assistant Surgical; PCP Internal Medicine; Visit Provider Orthopaedic Surgery
PROC: (CPT 27130; principal; 2024-10-04 07:30)
DX: M16.11 Unilateral primary osteoarthritis, right hip (principal); M25.751 Osteophyte, right hip; E78.5 Hyperlipidemia, unspecified; I10 Essential (primary) hypertension; K21.9 Gastro-esophageal reflux disease without esophagitis; G47.33 Obstructive sleep apnea (adult) (pediatric); E66.9 Obesity, unspecified; Z68.36 Body mass index [BMI] 36.0-36.9, adult; Z79.82 Long term (current) use of aspirin; Z79.84 Long term (current) use of oral hypoglycemic drugs; Z79.1 Long term (current) use of non-steroidal anti-inflammatories (NSAID); Z98.890 Other specified postprocedural states; Z98.1 Arthrodesis status
CPT/HCPCS: 27130; 36415; 73501; 80048; 82948; 85025; 86850; 86900; 86901; 97110; 97161; 97165; 97530; 97535; 99199; A9270; C1776; J0171; J0690; J1100; J1171; J1885; J2003; J2250; J2270; J2405; J2704; J2795; J3010; J3370; J7120